=== PATIENT | female | born 1970 | race Caucasian/White ===

== ENCOUNTER 2022-01-20 09:31 | Emergency (ER) | payer BC, SELFPAY ==
--- NOTE | 2022-01-20 09:42 | ED.URI ---
HPI - URI/Sore Throat General Chief Complaint: Upper Respiratory Infection Stated Complaint: SORE THROAT/FEVER/SINUS DRAINAGE Time Seen by Provider: 01/20/22 10:00 Source: patient and RN notes reviewed Mode of arrival: ambulatory Limitations: no limitations History of Present Illness HPI Narrative: 51-year-old female presents with concern for 6-day history of sore throat. She also reports cold symptoms, sneezing, nasal drainage. She reports she has tried [id number] medication without relief. She reports her sore throat worsened over the last several days. She reports [id number] medications were not improving her symptoms, she had a negative COVID test at home. MD elicited complaint: cough, rhinorrhea and nasal congestion Related Data Home Medications Medication Instructions Recorded Confirmed sumatriptan succinate 100 mg tablet mg PO 01/20/22 Allergies Allergy/AdvReac Type Severity Reaction Status Date / Time Penicillins Allergy Unknown RASH Verified 01/20/22 09:47 Review of Systems Review of Systems: CONSTITUTIONAL: Reports malaise, low-grade fever. EYES: Denies visual changes, redness, or discharge. ENT: Reports rhinorrhea, congestion, sinus pain, and sore throat. CARDIOVASCULAR: Denies chest pain, palpitations, or edema. RESPIRATORY: Reports cough. Denies dyspnea. GASTROINTESTINAL: Denies abdominal pain, nausea, vomiting, diarrhea SKIN: Denies rash or itching. MUSCULOSKELETAL: Reports myalgia. NEUROLOGIC: Denies headache. All systems reviewed & are unremarkable except as noted in HPI and below PMFSH Comments At time of signature, agree with nursing past medical, surgical, social and family history. There is no relevant family history pertinent to the presenting complaint Exam Narrative: GENERAL: Nontoxic appearing and in no acute distress. HEAD: Normocephalic EYES: PERRLA, conjunctivae clear ENT: Nares clear, turbinates edematous and erythematous, clear discharge. Mucous membranes moist. TM pearly robert with sharp light reflex bilaterally; no tragal tenderness. Oropharynx mildly erythematous without lesions. Tonsils not enlarged and without exudate, no drooling, no hoarseness, no trismus, uvula midline. NECK: Supple. No lymphadenopathy CHEST: Clear to auscultation, breath sounds equal. No wheezing, rhonchi, rales, or stridor. No respiratory distress, speaks in full sentences. HEART: Regular rate and rhythm. No murmur heard. SKIN: Warm, dry, no rash. NEURO: Alert and oriented x3. PSYCH: Normal mood and affect Course Course Emergency Course: Patient is aware of diagnosis, understands and agrees to treatment plan. Anticipatory guidance given. Patient agrees to follow-up as directed and is aware of reasons to seek care at the emergency department. Portions of this record may have been created with voice recognition software Level of Care: Express Care Visit Vital Signs Vital signs: Vital Signs Temperature 100.4 F H 01/20/22 09:55 Pulse Rate 110 H 01/20/22 09:55 Respiratory Rate 16 01/20/22 09:55 Blood Pressure 123/68 01/20/22 09:55 Pulse Oximetry 99 01/20/22 09:55 Temperature 100.4 F H 01/20/22 09:55 Pulse Rate 110 H 01/20/22 09:55 Respiratory Rate 16 01/20/22 09:55 Blood Pressure 123/68 01/20/22 09:55 Pulse Oximetry 99 01/20/22 09:55 Reviewed. MDM - URI/Sore Throat MDM Narrative Medical decision making narrative: Differential diagnosis considered: Lopez virus, strep pharyngitis, allergic rhinitis, upper respiratory tract infection, sinusitis, rhinosinusitis, nasopharyngitis. viral pharyngitis, otitis media, otitis externa, pneumonia, bronchitis, viral cough syndrome, viral syndrome, and influenza. Exam findings show no acute concerns or changes; patient is non-toxic appearing and is in no distress. Patient is appropriate for outpatient treatment and follow-up. Lab Data Attestation: I reviewed the patient's lab results. Labs: Strep Screen
[2022-01-20 09:55] VITALS: BP 123/68; PULSE 110; RESP 16; TEMP 38; O2SAT 99
== END 2022-01-20 10:13 | disposition home or self-care (01) ==
PROVIDERS: Emergency Provider Nurse Practitioner; PCP Family Medicine Sports Medicine
DX: J06.9 Acute upper respiratory infection, unspecified (principal)
CPT/HCPCS: 87081; 87880; 99203; G0463

== ENCOUNTER 2023-01-24 15:32 | Outpatient (CLI) | payer BC, SELFPAY ==
--- NOTE | ~2023-01-24 | MM_ITS ---
EXAMINATION: MM scrn nikko implant BI w cristy HISTORY: Screening mammogram TECHNIQUE: Craniocaudal and mediolateral oblique 3-D tomosynthesis images with implant displacement a nd synthetic 2-D images were generated. Craniocaudal and mediolateral oblique views of the breasts wi thout implant displacement were obtained using full field digital mammography. CAD analysis was submi tted and interpreted. COMPARISON: 12/28/2018 bilateral implant screening mammogram BREAST PARENCHYMAL COMPOSITION: The breasts are heterogeneously dense, which may obscure small masses . FINDINGS: Status post bilateral augmentation mammoplasty. There is no evidence of suspicious mass, ca lcification, or architectural distortion to suggest malignancy in either breast. There has been no baron spicious interval change. IMPRESSION: 1. No mammographic evidence of malignancy. 2. Recommend routine screening mammography in one year. BI-RADS Category 1: Negative Reviewed, dictated and finalized at location A.
== END 2023-01-24 15:33 | disposition home or self-care (01) ==
LOC: ANHIMG 15:33
PROVIDERS: PCP Family Medicine Sports Medicine; Visit Provider Obstetrics & Gynecology
DX: Z12.31 Encounter for screening mammogram for malignant neoplasm of breast (principal)
CPT/HCPCS: 77063; 77067

== ENCOUNTER 2023-09-11 13:07 | Emergency (ER) | payer BC, SELFPAY ==
--- NOTE | 2023-09-11 13:14 | ED.URI ---
HPI - URI/Sore Throat General Chief Complaint: Ear Stated Complaint: Ear/Sore Throat/Cough Time Seen by Provider: 09/11/23 13:25 Source: patient, RN notes reviewed and old records reviewed Mode of arrival: ambulatory Limitations: no limitations History of Present Illness HPI Narrative: 53-year-old female presents to the [facility] with complaints of ear pain, sore throat and a cough that started Friday, 4 days. Pain is worse on the left than the right. Reports taken [id number] products Reports subjective fevers, reports that she had chills on Friday Treatments prior to arrival: cold medicine Related Data Home Medications Medication Instructions Recorded Confirmed sumatriptan succinate 100 mg tablet 100 mg PO USEASDIRECTD PRN 01/20/22 09/11/23 Migraine Headache Allergies Allergy/AdvReac Type Severity Reaction Status Date / Time Penicillins Allergy Unknown RASH Verified 09/11/23 13:17 Review of Systems Review of Systems: All systems reviewed & are unremarkable except as noted in HPI and below Constitutional: Constitutional: Reports as per HPI, Reports body ache(s), Reports chills and Reports fever(s) Eyes: Eyes: Reports no additional eye complaints ENT: Reports as per HPI, Reports otalgia and Reports sore throat Cardiovascular: Cardiovascular: Reports no additional cardiovascular complaints, Denies chest pain and Denies dyspnea Respiratory: Respiratory: Reports as per HPI, Denies chest congestion, Reports cough and Denies dyspnea Gastrointestinal: Gastrointestinal: Reports no additional gastrointestinal complaints, Denies abdominal pain, Denies nausea and Denies vomiting Musculoskeletal: Musculoskeletal: Reports no additional musculoskeletal complaints Integumentary/Breasts: Skin/Breast: Reports system reviewed and no additional complaints, except as docu Neurologic: Reports system reviewed and no additional complaints, except as documented Psychiatric: Psychiatric: Reports no additional psychiatric complaints Allergic/Immunologic: Allergic/Immunologic: Reports no additional allergic/immunologic complaints PMFSH Past Medical History Medical History Endometriosis FH: cholecystectomy Screening mammogram for breast cancer Surgical History Surgical History History of bilateral ligation of fallopian tubes History of orthopedic surgery Family History Family History Grandparent Breast cancer Diabetes mellitus Heart disease Hypertension Social History Social History Smoking status: Never smoker Alcohol intake: current Alcohol use details: socially Substance use: never Substance use type: does not use Living arrangements: with family Gender identity (if verbalized by the patient): Female Sexual Orientation (if Verbalized by the Patient): Straight or Heterosexual Comments At the time of my signature, I reviewed and agree with the nursing past medical, surgical, social, and family history. There is no relevant family history pertinent to the patient complaint. Exam Const: General: cooperative, healthy appearing, comfortable, no acute distress, well developed, alert and well nourished Nutritional Appearance: well nourished Orientation/consciousness: patient oriented x3 Limitations: no limitations HENMT: Head: normal to inspection Ears: hearing grossly normal bilaterally, external ears normal, EAC's normal, mastoids normal, no periauricular adenopathy and TM abnormal bulging on the left and wth effusion serous bilateral; not erythematous and with no loss of landmarks Face/Nose/Sinus: Normal external nose present, Normal nares present, Normal nasal mucous membranes and turbinates present, no nasal discharge noted, normal facial exam and face symmetric Face and
[2023-09-11 13:18] VITALS: BP 108/71; PULSE 113; RESP 16; TEMP 37.2; O2SAT 98
== END 2023-09-11 13:42 | disposition home or self-care (01) ==
PROVIDERS: Emergency Provider Nurse Practitioner; PCP Family Medicine Sports Medicine
DX: J06.9 Acute upper respiratory infection, unspecified (principal); H65.02 Acute serous otitis media, left ear; N80.9 Endometriosis, unspecified
CPT/HCPCS: 87081; 87880; 99213; G0463